=== PATIENT | female | born 1970 | race African-American/Black ===

== ENCOUNTER 2021-04-03 19:29 | Emergency (ER) | payer BC ==
[2021-04-03 19:39] VITALS: BP 150/86; PULSE 79; TEMP 98; BMI 25.7
== END 2021-04-03 21:18 | disposition home or self-care (01) ==
LOC: JERFT 19:29
DX: H53.8 Other visual disturbances (principal)
CPT/HCPCS: 99283-25

== ENCOUNTER 2022-02-02 22:38 | Emergency (ER) | payer BC ==
[2022-02-02 22:48] VITALS: BP 129/76; PULSE 67; RESP 20; TEMP 98.2; BMI 26.6
== END 2022-02-03 01:56 | disposition home or self-care (01) ==
LOC: JERFT 22:38
DX: S93.492A Sprain of other ligament of left ankle, initial encounter (principal); X50.0XXA Overexertion from strenuous movement or load, initial encounter; W10.9XXA Fall (on) (from) unspecified stairs and steps, initial encounter
CPT/HCPCS: 73610-TC-LT-FY; 73630-TC-LT; 99283-25